=== PATIENT | male | born 1990 | race Caucasian/White ===

== ENCOUNTER 2020-09-28 16:18 | Emergency (ER) | payer OTHER, SELFPAY ==
[~2020-09-28] VITALS: Ht 180.3 cm; Wt 160.5 kg
[2020-09-28] MEDS ORDERED: OXYcodone/APAP 10/325MG TABLET ONE (16:51)
[2020-09-28] MEDS ORDERED: LIDOCAINE-MPF 1%, 2ML ONE (16:51)
[2020-09-28] MEDS ORDERED: OXYcodone/APAP 10/325MG TABLET PO ONE (17:00)
[2020-09-28] MEDS ORDERED: LIDOCAINE 1%, 10ML INFIL ONE (17:00)
--- NOTE | 2020-09-28 17:00 | NUR ---
PT STATES HAS A CYST ON HIS TAILBONE THAT HAS BEEN THERE THAT LAST 2 DAYS. THE PAIN GOES ANYWHERE FROM A 2-9. PT STATES HAS HX OF CYSTS ON TAILBONE.
--- NOTE | 2020-09-28 17:10 | NUR ---
PT STATES THE AFTER BEING MEDICATED PAIN WENT DOWN TO A 5/10 AND IS MORE MANAGEABLE.
[2020-09-28 17:48] VITALS: BP 160/80
--- NOTE | 2020-09-28 17:50 | NUR ---
Patient given discharge instructions and they have confirmed that they understand the instructions. Patient ambulatory with steady gait. No questions at time of discharge.
== END 2020-09-28 17:53 | disposition home or self-care (01) ==
LOC: ED 17:33
DX: L05.01 Pilonidal cyst with abscess (principal)
CPT/HCPCS: 10080; 99284